=== PATIENT | male | born 1985 | race Hispanic/Latino ===

== ENCOUNTER 2022-06-15 22:47 | Emergency (ER) | payer OTHER ==
[~2022-06-15] VITALS: Ht 180.3 cm; Wt 81.6 kg
[2022-06-15] MEDS ORDERED: LIDOCAINE HCL 1% 20 ML VIAL INJ SCH (23:00)
[2022-06-15] MEDS ORDERED: TETANUS/DIPHTHERIA TOXOID [ADULT] 0.5 ML VIAL IM ONE (23:00)
[2022-06-15 23:16] VITALS: BP 132/78
[2022-06-15] MEDS ORDERED: CEPH500B PO (23:46)
[2022-06-15] MEDS ORDERED: IBUP-1493 PO (23:46)
== END 2022-06-15 23:53 | disposition home or self-care (01) ==
LOC: EDH 22:47
DX: S01.511A Laceration without foreign body of lip, initial encounter (principal); K13.79 Other lesions of oral mucosa; W54.0XXA Bitten by dog, initial encounter; Y93.89 Activity, other specified; Y92.89 Other specified places as the place of occurrence of the external cause; Y99.8 Other external cause status
CPT/HCPCS: 12051; 90471; 90714